=== PATIENT | male | born 1995 | race African-American/Black ===

== ENCOUNTER 2019-03-19 21:47 | Emergency (ER) | payer OTHER ==
[~2019-03-19] VITALS: Ht 185.4 cm; Wt 79.5 kg
[2019-03-19] MEDS ORDERED: ALBUTEROL SULFATE 2.5 MG/0.5 ML INH NEB SOLN INH ONE (23:00)
[2019-03-19] MEDS ORDERED: VENTAER INH (23:35)
[2019-03-19 23:55] VITALS: BP 131/68
== END 2019-03-19 23:56 | disposition home or self-care (01) ==
LOC: M ED 21:47
DX: J45.909 Unspecified asthma, uncomplicated (principal)

== ENCOUNTER → 2019-04-06 | Outpatient (CLI) | payer OTHER ==
[~2019-04-06] MED LIST: VENTAER INH
--- NOTE | 2019-04-06 07:10 | PFTRPT ---
Site: [facility], [address] [place] [address], [id number] ID: [id number] Name: MISA SMITH Visit Date: 04/06/2019 Second ID: [id number] Referring Doctor: Stewart Zamora Reviewing Doctor: Nirav Samano MD Analysis Internship: Shandra ROYAL RRT Age: 24 : 1995 Sex: Male Race: Black Height: 73.00 Inches Weight: 188.00 Lbs BSA: 2.10 Order IDs: [id number] Requested Test(s): <RESP-PFT.DLCO> Diagnosis: ASTHMA test meet the ATS standards for acceptability and repeatability. Review Status: Not Reviewed Pre-Bronch Post-Bronch Pred Actual %Pred Actual %Chng SPIROMETRY FVC (L) 5.17 5.53 106 FEV1 (L) 4.37 4.40 100 FEV1/FVC (%) 85 80 93 FEF 25% (L/sec) 8.74 6.37 72 FEF 50% (L/sec) 5.73 5.25 91 FEF 75% (L/sec) 2.37 1.96 82 FEF 25-75% (L/sec) 4.81 4.40 91 FEF Max (L/sec) 10.72 6.45 60 FIVC (L) 4.14 FIF 50% (L/sec) 5.70 5.47 95 FIF Max (L/sec) 5.48 MVV (L/min) 198 132 66 Expiratory Time (sec) 6.09 Back Extrap Vol (L) 0.17 Time To FEFmax (sec) 0.178 LUNG VOLUMES SVC (L) 5.86 5.44 92 IC (L) 3.82 4.32 113 ERV (L) 2.04 1.12 54 TGV (L) 3.66 3.10 84 RV (Pleth) (L) 1.62 1.98 122 TLC (Pleth) (L) 7.48 7.42 99 RV/TLC (Pleth) (%) 21 27 127 DIFFUSION DLCOunc (ml/min/mmHg) 38.35 38.80 101 DL/VA (ml/min/mmHg/L) 5.13 5.67 110 VA (L) 7.48 6.85 91 BHT (sec) 10.93 IVC (L) 5.33 TLC (SB) (L) 7.00 AIRWAYS RESISTANCE Raw (cmH2O/L/s) 1.45 1.32 90 Gaw (L/s/cmH2O) 1.03 0.79 76 sRaw (cmH2O*s) 4.76 4.25 89 sGaw (1/cmH2O*s) 0.20 0.24 122
== END ==
LOC: M CARPUL 06:38
PROVIDERS: ATTEND Clinical Nurse Specialist Psychiatric/Mental Health, Adult
DX: J45.909 Unspecified asthma, uncomplicated (principal)